=== PATIENT | male | born 1940 | race Caucasian/White ===

== ENCOUNTER 2019-06-04 09:46 | Outpatient (CLI) | payer MEDICARE, OTHER ==
[2019-06-04] VITALS (17 sets, daily range): BP systolic 110–140; BP diastolic 64–79
== END 2019-06-04 23:59 | disposition home or self-care (01) ==
LOC: CARD DIAG 09:46
PROVIDERS: ATTEND Internal Medicine Interventional Cardiology
DX: R42 Dizziness and giddiness (principal); Z87.891 Personal history of nicotine dependence
CPT/HCPCS: 93660